=== PATIENT | male | born 1965 | race Caucasian/White ===

== ENCOUNTER → 2021-04-19 | Outpatient (CLI) | payer OTHER ==
--- NOTE | 2021-04-19 11:56 | REP ---
INDICATION: LEFT HAND PAIN. COMPARISON: No comparison hand series. TECHNIQUE: Four views of the left hand are provided. FINDINGS: Four views of the left hand demonstrate a healing obliquely oriented fracture through the proximal phalanx of the index finger. There is associated soft tissue swelling. Very slight override but no displacement. Hypertrophy nailbed changes are seen at each finger and the thumb. Bones, joints and soft tissues are otherwise unremarkable. No opaque foreign body noted. IMPRESSION: Healing proximal phalangeal fracture index finger. <Electronically signed by Daniel Rust > 04/19/21 [id number]
== END ==
LOC: M ADAMS 11:00
PROVIDERS: ATTEND Physician Assistant Medical
DX: M79.642 Pain in left hand (principal)

== ENCOUNTER 2023-01-04 06:53 | Day surgery (SDC) | payer OTHER ==
[~2023-01-04] VITALS: Ht 167.6 cm; Wt 73.0 kg
[~2023-01-04 06:53] MED LIST: FLOM0.4C39 PO; LOPR1TAB6 PO; NS 1,000 ML IV ONE; ROSU40TA4 PO; ZOLO100T PO
[2023-01-04] MEDS ORDERED: LIDOCAINE 2% 100MG/5ML SDV (FOR ANES.) As Ordered ONE (08:41)
[2023-01-04] MEDS ORDERED: propofoL 500 MG/50 ML VIAL As Ordered ONE ×2 (08:41→09:14)
[2023-01-04] MEDS ORDERED: fentaNYL 100 MCG/2 ML INJECTION As Ordered ONE (08:41)
[2023-01-04 09:52] VITALS: BP 160/90
== END 2023-01-04 09:54 | disposition home or self-care (01) ==
LOC: M OPP 06:53
PROVIDERS: ATTEND Internal Medicine Gastroenterology
DX: Z12.11 Encounter for screening for malignant neoplasm of colon (principal); Z86.010 Personal history of colon polyps; K64.0 First degree hemorrhoids; K57.30 Diverticulosis of large intestine without perforation or abscess without bleeding; K63.89 Other specified diseases of intestine; K22.89 Other specified disease of esophagus; Z79.02 Long term (current) use of antithrombotics/antiplatelets; Z79.899 Other long term (current) drug therapy
CPT/HCPCS: 43239; 45380; 45385; 88305; J3010

== ENCOUNTER 2024-01-29 11:07 | Day surgery (SDC) | payer OTHER ==
[~2024-01-29] VITALS: Ht 167.6 cm; Wt 72.1 kg
[~2024-01-29 11:07] MED LIST changes: +AMLO1TAB25 PO; +CALC-356 PO; +EZET10TA21 PO; +LORA-1041 PO; +METO50TA7 PO; +RAMI10CA64 PO; -ROSU40TA4 PO; +ROSU40TA63 PO; +TAMS1CAP17 PO
[2024-01-29] MEDS ORDERED: propofoL 200 MG/20 ML VIAL As Ordered ONE (12:40)
[2024-01-29] MEDS ORDERED: LIDOCAINE 2% 100MG/5ML SDV (FOR ANES.) As Ordered ONE (12:40)
[2024-01-29 13:19] VITALS: BP 129/76; O2SAT 97
== END 2024-01-29 13:23 | disposition home or self-care (01) ==
LOC: M OPP 11:07
PROVIDERS: ATTEND Internal Medicine Gastroenterology
DX: Z86.010 Personal history of colon polyps (principal); K63.5 Polyp of colon; K64.0 First degree hemorrhoids; K57.30 Diverticulosis of large intestine without perforation or abscess without bleeding; F17.200 Nicotine dependence, unspecified, uncomplicated; Z79.02 Long term (current) use of antithrombotics/antiplatelets; Z79.899 Other long term (current) drug therapy

== ENCOUNTER → 2024-11-25 | Outpatient (CLI) | payer OTHER ==
[~2024-11-25] MED LIST changes: -NS 1,000 ML IV ONE; -ROSU40TA63 PO; +ROSU40TA81 PO
== END ==
LOC: M SLEEP 20:00
PROVIDERS: ATTEND Internal Medicine
DX: R06.83 Snoring (principal)

== ENCOUNTER 2025-02-27 14:13 | Emergency (ER) | payer OTHER ==
[~2025-02-27] VITALS: Ht 167.6 cm; Wt 72.7 kg
[~2025-02-27 14:13] MED LIST changes: -FLOM0.4C39 PO; +TAMS-18 PO
[2025-02-27 16:56] LABS: BASO # 0.2 10^3/uL (0.0-0.2); BASO % 1.4 % (0.0-1.0); EOS # 0.3 10^3/uL (0.0-0.5); EOS % 2.0 % (0.0-3.0); LYMPH # 1.4 10^3/uL (1.5-5.0); LYMPH % 11.1 % (24.0-44.0); MONO # 1.0 10^3/uL (0.0-0.8); MONO % 7.6 % (2.0-8.0); NEUTROPHILS # 9.7 10^3/uL (1.5-8.5); NEUTROPHILS % 77.0 % (36.0-66.0); PLATELET COUNT, AUTOMATED 235 10^3/uL (150-450)
[2025-02-27 16:59] LABS: KETONE, URINE AUTO RFX NEGATIVE (NEGATIVE); LEUKOCYTE ESTERASE UR AUTO RFX NEGATIVE (NEGATIVE); NITRITE, URINE AUTO RFX NEGATIVE (NEGATIVE); RBC, URINE AUTO RFX 0 /HPF (0-3); SQUAM EPITHELIAL CELL UR AURFX 0 /HPF (0-6); WBC, URINE AUTO RFX 1 /HPF (0-3)
[2025-02-27 17:11] LABS: INR 0.94
[2025-02-27 17:34] LABS: ALT/SGPT 437 U/L (7.0-40); AST/SGOT 335 U/L (<34); CALCIUM LEVEL 9.3 MG/DL (8.5-10.1); CARBON DIOXIDE LEVEL 28 MMOL/L (20-31); CHLORIDE LEVEL 93 MMOL/L (98-107); CREATININE FOR GFR 0.76 MG/DL (0.70-1.30); GLOMERULAR FILTRATION RATE > 90.0 (>56); POTASSIUM SERUM 4.7 MMOL/L (3.5-5.1); SODIUM LEVEL 131 MMOL/L (136-145)
[2025-02-27] MEDS ORDERED: ISOVUE-370 76% 100 ML VIAL As Ordered ONE (21:28)
[2025-02-28] MEDS: PIPERACILLIN/TAZOBACTAM SOD 4.5 GM in DEXTROSE 5% (D5W) ADV/MINI-BAG 50 ML IV ONE (00:43)
[2025-02-28 03:01] VITALS: TEMP 96.4
[2025-02-28 03:03] VITALS: BP 165/72; O2SAT 98
== END 2025-02-28 03:05 | disposition short-term general hospital (02) ==
LOC: M ED 14:13
DX: K83.09 Other cholangitis (principal); K52.9 Noninfective gastroenteritis and colitis, unspecified; I10 Essential (primary) hypertension; E78.5 Hyperlipidemia, unspecified; N40.0 Benign prostatic hyperplasia without lower urinary tract symptoms; F32.A Depression, unspecified; F17.210 Nicotine dependence, cigarettes, uncomplicated; F10.10 Alcohol abuse, uncomplicated; Z79.899 Other long term (current) drug therapy
CPT/HCPCS: 74177; 74181; 80048; 80076; 81001; 83690; 85025; 85610; 85730; 87040; 96374; 99285; J2543; Q9967